=== PATIENT | female | born 1970 | race American Indian/Alaskan Native ===

== ENCOUNTER 2019-04-18 05:54 | Emergency (ER) | payer OTHER ==
[2019-04-18] MEDS ORDERED: METOCLOPRAMIDE 10 MG/2 ML INJ IV ONE (08:03)
[2019-04-18] MEDS ORDERED: diphenhydrAMINE 50 MG/ML VIAL IV ONE (08:03)
[2019-04-18] MEDS ORDERED: SODIUM CHLORIDE 0.9% 1000 ML 1,000 ML IV ONE (08:03)
[2019-04-18] MEDS ORDERED: dexAMETHasone 20 MG/5 ML VIAL IV ONE (08:03)
--- NOTE | 2019-04-18 09:17 | Emergency Department Report ---
ED Head Trauma HPI - General Chief complaint: Fall Stated complaint: FALL W/HEADACHE Time Seen by Provider: 04/18/19 07:48 Source: patient Mode of arrival: Ambulatory Limitations: No Limitations - History of Present Illness Initial comments: 49-year-old -Citizen Of The [place] female patient with history of migraines presents with complaints of headache and dizziness after a. head injury yesterday at work. Patient reports she hit her right forehead while trying to lift some boxes. She denies any loss of consciousness, vision changes, numbness/tingling/weakness in her limbs, difficulty with ambulation, or neck pain. She rates her headache as a 8/10 in severity and states is slightly improved with naproxen. She admits to 1 episode of vomiting and states she is currently nauseous, however states this headache does feel like her migraine and that nausea and vomiting is normal of her migraines. She reports she normally takes Imitrex for her migraines, however she was afraid to fall asleep. Complaint: head injury - Related Data Allergies/Adverse reactions: Allergies Allergy/AdvReac Type Severity Reaction Status Date / Time No Known Allergies Allergy Verified 04/18/19 06:00 ED Review of Systems ROS: Stated complaint: FALL W/HEADACHE Other details as noted in HPI Constitutional: denies: diaphoresis, fever Eyes: denies: vision change Respiratory: denies: shortness of breath Cardiovascular: denies: chest pain Gastrointestinal: nausea, vomiting. denies: abdominal pain Musculoskeletal: denies: back pain Skin: denies: lesions Neurological: headache, other. denies: weakness, numbness, paresthesias, abnormal gait Hematological/Lymphatic: denies: easy bleeding ED Past Medical Hx - Past Medical History Previous Medical History?: Yes Hx Headaches / Migraines: Yes Hx Asthma: Yes - Surgical History Past Surgical History?: Yes Additional Surgical History: tubal ligaion. IC - Social History Smoking Status: Never Smoker Substance Use Type: None ED Physical Exam - General Limitations: No Limitations General appearance: alert, in no apparent distress - Head Head exam: Present: atraumatic, normocephalic - Eye Eye exam: Present: normal appearance, PERRL, EOMI. Absent: scleral icterus - ENT ENT exam: Present: mucous membranes moist - Neck Neck exam: Present: normal inspection, full ROM. Absent: tenderness - Respiratory Respiratory exam: Present: normal lung sounds bilaterally. Absent: respiratory distress - Cardiovascular Cardiovascular Exam: Present: regular rate, normal rhythm. Absent: systolic murmur, diastolic murmur, rubs, gallop - GI/Abdominal GI/Abdominal exam: Present: soft. Absent: distended - Extremities Exam Extremities exam: Present: normal inspection, full ROM - Neurological Exam Neurological exam: Present: alert, oriented X3, CN II-XII intact, normal gait. Absent: motor sensory deficit - Expanded Neurological Exam Expanded Cerebellar function: Finger to Nose: Normal, Heel to Foley: Normal, Romberg: Normal Sensory exam: Upper Extremity Light Touch: Normal, Lower Extremity Light Touch: Normal Motor strength exam: RUE: 5, LUE: 5, RLE: 5, LLE: 5 - Psychiatric Psychiatric exam: Present: normal affect, normal mood - Skin Skin exam: Present: warm, dry, intact, normal color. Absent: rash, cyanosis, diaphoretic, erythema ED Course Vital Signs 04/18/19 04/18/19 05:59 08:59 Temperature 97.6 F Pulse Rate 80 Respiratory 18 18 Rate Blood Pressure 151/61 O2 Sat by Pulse 99 98 Oximetry - Lab Data Lab Results 04/18/19 Range/Units 09:29 Urine Color Straw (Yellow) Urine Turbidity Clear (Clear) Urine pH 7.0 (5.0-7.0) Ur Specific [place] 1.013 (1.003-1.030) Urine Protein <15 mg/dl (Negative) mg/dL Urine Glucose (UA) Neg (Negative) mg/dL Urine Ketones Neg (Negative) mg/dL Urine Blood Neg (Negative) Urine Nitrite Neg (Negative) Urine Bilirubin Neg (Negative) Urine Urobilinogen < 2.0 (<2.0) mg/dL Ur Leukocyte Esterase Neg (Negative) Urine WBC (Auto) 1.0 (0.0-6.0) /HPF Urine RBC (Auto) 2.0 (0.0-6.0) /HPF U Epithel Cells (Auto) 2.0 (0-13.0) /HPF Urine Mucus Few /HPF - Radiology Data Radiology results: report reviewed CT head without contrast Impression: Limited exam with moderate ring artifact. Having said that, no acute intracranial abnormality is detected. Please correlate with the patient's clinical presentation. If there is clinical concern, repeat CT head or MRI brain could be considered. - Medical Decision Making Patient here with complaints of headache and dizziness following head injury x yesterday. She denies any loss of consciousness. Neuro exam is normal. Vitals are normal. CT head results are as follows: Impression: Limited exam with moderate ring artifact. Having said that, no acute intracranial abnormality is detected. Please correlate with the patient's clinical presentation. If there is clinical concern, repeat CT head or MRI brain could be considered. Discussed artifact and CT head results with patient and possible need for repeat CT head, patient declines and states she would like to watch and wait over the next 24 to 48 hours. After Decadron, Reglan, and Benadryl IV with 1 L saline bolus patient states her headache is now a 1/10 in severity. Discussed diagnosis of concussion and importance of brain rest and follow-up with her neurologist, Dr. Cornelius within the next 48 hours. Patient instructed to call Dr. Cornelius's office today to inform them of her incident and symptoms to make an appointment. Also discussed in great detail signs and symptoms that should prompt immediate return to the emergency department, patient verbalizes understanding. Critical care attestation.: If time is entered above; I have spent that time in minutes in the direct care of this critically ill patient, excluding procedure time. ED Disposition Clinical Impression: Concussion Qualifiers: Encounter type: initial encounter Loss of consciousness presence/duration: without LOC Qualified Code(s): S06.0X0A - Concussion without loss of conscious ness, initial encounter Disposition: DC-01 TO HOME OR SELFCARE Is pt being admited?: No Condition: Stable Instructions: Concussion (ED) Additional Instructions: Please follow-up with your neurologist within 24 to 48 hours.
[2019-04-18 09:39] LABS: Bilirubin,Urine NEG (Negative); Blood,Urine NEG (Negative); Color,Urine Straw (Yellow); Mucus,Urine FEW /HPF; Protein,Urine <15 mg/dL mg/dL (Negative); Urobilinogen,Urine < 2.0 mg/dL (<2.0)
--- NOTE | 2019-04-18 10:22 | Cat Scan Report ---
CT HEAD WITHOUT CONTRAST INDICATION : head injury, dizziness. TECHNIQUE: Axial imaging performed from the skull apex through the skull base without the use of con trast. Sagittal and coronal reformatted images. All CT scans at this location are performed using C T dose reduction for ALARA by means of automated exposure control. COMPARISON: None FINDINGS: Comment: There appears to be moderate ring artifact throughout this examination which significantly l imits this exam. Parenchyma: No acute intracranial hemorrhage or parenchymal abnormality. Ventricles: Ventricles are normal in size and appear symmetric. Bones: No acute osseous abnormality. Sinuses: Sinuses and mastoid air cells are clear. Soft tissues: Soft tissues including the orbits appear normal. IMPRESSION: Limited exam with moderate ring artifact. Having said that, no acute intracranial abnorma lity is detected. Please correlate with the patient's clinical presentation. If there is clinical con cern, repeat CT head or MRI brain could be considered. Signer Name: Curtis Little Jr, MD Signed: 04/18/2019 10:17 AM Workstation Name: [id number]
[2019-04-18 11:16] VITALS: BP 141/82
== END 2019-04-18 11:15 | disposition home or self-care (01) ==
LOC: ED 05:54
DX: S06.0X0A Concussion without loss of consciousness, initial encounter (principal); J45.909 Unspecified asthma, uncomplicated; R42 Dizziness and giddiness; G43.909 Migraine, unspecified, not intractable, without status migrainosus; Z98.51 Tubal ligation status; W19.XXXA Unspecified fall, initial encounter; Y93.89 Activity, other specified; Y92.89 Other specified places as the place of occurrence of the external cause; Y99.8 Other external cause status
CPT/HCPCS: 70450; 81001; 96361; 96374; 96375; 99284; J1100; J1200; J2765; J7030

== ENCOUNTER 2019-04-24 11:37 | Emergency (ER) | payer OTHER ==
[2019-04-24 14:06] VITALS: BP 137/72
--- NOTE | 2019-04-24 14:07 | Event Note ---
ED Screening Note Date of service: 04/24/19 Time: 14:02 ED Screening Note: 49 y o female presents with headaches and arm numbness and tinggling s/p fall on 04/18 pt also exp nausea pmh of migraines Pt states motrin no relief vomitting episode 1 harvey lasts all day, This initial assessment/diagnostic orders/clinical plan/treatment(s) is/are subject to change based on patients health status, clinical progression and re- assessment by fellow clinical providers in the ED. Further treatment and workup at subsequent clinical providers discretion. Patient/guardian urged not to elope from the ED as their condition may be serious if not clinically assessed and managed. Initial orders include: CT at last visit acc eval
--- NOTE | 2019-04-24 18:18 | Cat Scan Report ---
CT BRAIN: 04/24/2019 INDICATION / CLINICAL INFORMATION: continued SKY after head trauma, right arm tingling. COMPARISON: 04/18/2019 FINDINGS: BRAIN/INTRACRANIAL STRUCTURES: Unenhanced CT images of the brain were obtained and compared to the pr evious exam from 6 days earlier. There has been no change. There is no evidence of acute abnormality. There is no evidence of acute ischemic injury, hemorrhage, or mass. There are no abnormal extra-axial fluid collections. EXTRACRANIAL STRUCTURES: Unremarkable. IMPRESSION: No acute abnormality. No change when compared to the recent prior exam. All CT scans at this location are performed using dose reduction to ALARA by means of automated expos ure control. Signer Name: Rafael Conway MD Signed: 04/24/2019 6:14 PM Workstation Name: [id number]
[2019-04-24] MEDS ORDERED: dexAMETHasone 20 MG/5 ML VIAL IM ONE (19:10)
[2019-04-24] MEDS ORDERED: diphenhydrAMINE 25 MG CAP PO ONE (19:10)
[2019-04-24] MEDS ORDERED: METOCLOPRAMIDE 10 MG TAB PO ONE (19:10)
[2019-04-24] MEDS ORDERED: ACETAMINOPHEN 500 MG TAB PO ONE (19:10)
--- NOTE | 2019-04-24 20:16 | Emergency Department Report ---
ED General Adult HPI - General Chief complaint: Fall Stated complaint: FALL AT WORK Time Seen by Provider: 04/24/19 18:23 Source: patient Mode of arrival: Ambulatory Limitations: No Limitations - History of Present Illness Initial comments: Ms. Bragg is a 49-year-old -[place] female who presents for headache pain 4/10 frontal intermittent for the last 2 weeks status post fall . She does have a history of migraines. She states more since fall. She she has secondary complaint of right arm pain described as numbness and tingling intermittent to the right fourth and fifth digit over the past 2 weeks as well. Patient had CT of head on day of incident however has not followed up with neuro or orthopedics. States she has been taking ibuprofen as needed for the headache and arm pain. It does work intermittently but pain returns. She denies dizziness, lightheadedness, no nausea vomiting, no chest pain or shortness of breath.. Symptoms are exacerbated by activity. Symptoms are relieved by rest. Onset/Timin -: week(s) Location: head, neck, upper extremity Radiation: extremity Severity scale (0 -10): 6 Quality: aching Consistency: intermittent Improves with: rest Worsens with: movement Associated Symptoms: headaches. denies: fever/chills, malaise, nausea/vomiting, weakness Treatments Prior to Arrival: none - Related Data Previous Rx's Medication Instructions Recorded Last Taken Type Acetaminophen [Non-Aspirin Extra 1,000 mg PO QID PRN #60 tablet 04/24/19 Unknown Rx Strength] Diclofenac 1% [Diclofenac 1% 40 applic TP QID PRN #1 tube 04/24/19 Unknown Rx topical gel] Metoclopramide [Reglan] 10 mg PO Q6H PRN #30 tab 04/24/19 Unknown Rx diphenhydrAMINE [Benadryl CAP] 25 mg PO Q6HR PRN #30 capsule 04/24/19 Unknown Rx predniSONE [Deltasone] 40 mg PO QDAY 5 Days #10 tab 04/24/19 Unknown Rx Allergies Allergy/AdvReac Type Severity Reaction Status Date / Time No Known Allergies Allergy Verified 04/18/19 06:00 ED Review of Systems ROS: Stated complaint: FALL AT WORK Other details as noted in HPI Constitutional: denies: chills, fever Eyes: denies: eye pain, eye discharge, vision change ENT: denies: ear pain, throat pain Respiratory: denies: cough, shortness of breath, wheezing Cardiovascular: as per HPI Endocrine: no symptoms reported Gastrointestinal: denies: abdominal pain, nausea, vomiting, diarrhea Genitourinary: denies: urgency, dysuria, discharge Musculoskeletal: arthralgia, myalgia Skin: denies: rash, lesions Neurological: headache, numbness. denies: weakness, paresthesias, confusion, vertigo Psychiatric: denies: anxiety, depression Hematological/Lymphatic: denies: easy bleeding, easy bruising ED Past Medical Hx - Past Medical History Previous Medical History?: No Hx Headaches / Migraines: Yes Hx Asthma: Yes Additional medical history: IC - Surgical History Past Surgical History?: Yes Additional Surgical History: tubal ligaion. IC - Social History Smoking Status: Never Smoker Substance Use Type: Alcohol - Medications Home Medications: Home Medications Medication Instructions Recorded Confirmed Last Taken Type Acetaminophen [Non-Aspirin Extra 1,000 mg PO QID PRN #60 tablet 04/24/19 Unknown Rx Strength] Diclofenac 1% [Diclofenac 1% 40 applic TP QID PRN #1 tube 04/24/19 Unknown Rx topical gel] Metoclopramide [Reglan] 10 mg PO Q6H PRN #30 tab 04/24/19 Unknown Rx diphenhydrAMINE [Benadryl CAP] 25 mg PO Q6HR PRN #30 capsule 04/24/19 Unknown Rx predniSONE [Deltasone] 40 mg PO QDAY 5 Days #10 tab 04/24/19 Unknown Rx ED Physical Exam - General Limitations: No Limitations General appearance: alert, in no apparent distress - Head Head exam: Present: atraumatic, normocephalic - Eye Eye exam: Present: normal appearance, PERRL, EOMI Pupils: Present: normal accommodation - ENT ENT exam: Present: mucous membranes moist - Neck Neck exam: Present: normal inspection, full ROM. Absent: tenderness, meningismus, lymphadenopathy, thyromegaly - Expanded Neck Exam Expanded Neck exam: Absent: tenderness, midline deformity, anterior neck swelling, thyroid mass, carotid bruit, tracheal deviation - Respiratory Respiratory exam: Present: normal lung sounds bilaterally. Absent: respiratory distress, wheezes, stridor, chest wall tenderness - Cardiovascular Cardiovascular Exam: Present: regular rate, normal rhythm, normal heart sounds. Absent: systolic murmur, diastolic murmur, rubs, gallop - GI/Abdominal GI/Abdominal exam: Present: soft, normal bowel sounds. Absent: tenderness, guarding, rebound, rigid, bruit, hernia - Rectal Rectal exam: Present: deferred - Extremities Exam Extremities exam: Present: normal inspection, full ROM, normal capillary refill. Absent: tenderness - Expanded Upper Extremity Exam Right General: Present: normal inspection Shoulder Exam: Present: full ROM, tenderness. Absent: swelling Upper Arm exam: Present: full ROM. Absent: tenderness, swelling Elbow exam: Present: full ROM, tenderness. Absent: swelling Forearm Wrist exam: Present: full ROM, tenderness. Absent: swelling Hand Wrist exam: Present: normal inspection, full ROM. Absent: tenderness, swelling Neuro motor exam: Present: wrist extension intact, thumb opposition intact, thumb IP flexion intact, thumb adduction intact, fingers 2-5 abduction intact Neurosensory exam: Present: radial nerve intact, ulnar nerve intact Vascular: Present: radial pulse - Back Exam Back exam: Present: normal inspection, full ROM. Absent: CVA tenderness (R), CVA tenderness (L), muscle spasm, paraspinal tenderness, vertebral tenderness, rash noted - Neurological Exam Neurological exam: Present: alert, oriented X3, CN II-XII intact, normal gait, reflexes normal - Expanded Neurological Exam Expanded Patient oriented to: Present: person, place, time Speech: Present: fluid speech Sensory exam: Upper Extremity Light Touch: Normal, Upper Extremity Pin Prick: Normal, Upper Extremity Temperature: Normal, UE 2 Point Discrimination: Normal Motor strength exam: RUE: 5, LUE: 5, RLE: 5, LLE: 5 DTR: bicep (R): 2+, bicep (L): 2+, tricep (R): 2+, tricep (L): 2+ Best Eye Response ([place]): (4) open spontaneously Best Motor Response ([place]): (6) obeys commands Best Verbal Response ([place]): (5) oriented Kayleigh Total: 15 - Psychiatric Psychiatric exam: Present: normal affect, normal mood - Skin Skin exam: Present: warm, dry, intact, normal color. 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 COMPARISON: 04/18/2019 FINDINGS: BRAIN/INTRACRANIAL STRUCTURES: Unenhanced CT images of the brain were obtained and compared to the previous exam from 6 days earlier. There has been no change. There is no evidence of acute abnormality. There is no evidence of acute ischemic injury, hemorrhage, or mass. There are no abnormal extra-axial fluid collections. EXTRACRANIAL STRUCTURES: Unremarkable. IMPRESSION: No acute abnormality. No change when compared to the recent prior exam. All CT scans at this location are performed using dose reduction to ALARA by means of automated exposure control. 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 Critical care attestation.: If time is entered above; I have spent that time in minutes in the direct care of this critically ill patient, excluding procedure time. ED Disposition Clinical Impression: Radiculopathy affecting upper extremity Headache Qualifiers: Headache type: unspecified Headache chronicity pattern: acute headache Intractability: not intractable Qualified Code(s): R51 - Headache Disposition: - TO HOME OR SELFCARE Is pt being admited?: No Does the pt Need Aspirin: No Condition: Stable Instructions: Acute Headache (ED), Peripheral Neuropathy (ED) Prescriptions: diphenhydrAMINE [Benadryl CAP] 25 mg PO Q6HR PRN #30 capsule PRN Reason: Headache predniSONE [Deltasone] 40 mg PO QDAY 5 Days #10 tab Diclofenac 1% [Diclofenac 1% topical gel] 40 applic TP QID PRN #1 tube PRN Reason: pain Acetaminophen [Non-Aspirin Extra Strength] 1,000 mg PO QID PRN #60 tablet PRN Reason: pain Metoclopramide [Reglan] 10 mg PO Q6H PRN #30 tab PRN Reason: Headache Referrals: ARVIN GOSS MD [Staff Physician] - 3-5 Days MICHAEL MANRIQUE MD [Referring] - 3-5 Days Forms: Work/School Release Form(ED) Time of Disposition: 20:40
== END 2019-04-24 20:45 | disposition home or self-care (01) ==
LOC: ED 11:37
DX: M54.10 Radiculopathy, site unspecified (principal); G43.909 Migraine, unspecified, not intractable, without status migrainosus; J45.909 Unspecified asthma, uncomplicated; N30.10 Interstitial cystitis (chronic) without hematuria; Z98.890 Other specified postprocedural states; Z98.51 Tubal ligation status; Z79.899 Other long term (current) drug therapy
CPT/HCPCS: 70450; 96372; 99283; J1100

== ENCOUNTER 2019-12-27 12:01 | Emergency (ER) | payer OTHER ==
--- NOTE | 2019-12-27 18:26 | Emergency Department Report ---
ED Psych HPI - General Chief Complaint: Psych Time Seen by Provider: 12/27/19 18:24 Source: patient Mode of arrival: Ambulatory - History of Present Illness Initial Comments: 49-year-old -[place] female with history of depression, went to see PCP today, discussed with them that she was suicidal for the past month, he put her on 1013 and referred her to the ED. Upon arrival to the ED patient states he had no plan to hurt herself, has a lot to live for, had just briefly had that thought, but feels better now. - Related Data Home Medications Medication Instructions Recorded Confirmed Last Taken Acetaminophen with Codeine 1 each PO Q6HR PRN 12/27/19 12/27/19 Unknown [Acetaminophen-Codeine #2 TAB] Erenumab-Aooe [Aimovig 70 mg IM QMONTH 12/27/19 12/27/19 Unknown Autoinjector] Fluticasone/Vilanterol [Breo 100 mcg IN DAILY 12/27/19 12/27/19 Unknown Ellipta 100-25 Mcg INH] Trazodone HCl 100 mg PO DAILY 12/27/19 12/27/19 Unknown Previous Rx's Medication Instructions Recorded Last Taken Type Diclofenac 1% [Diclofenac 1% 40 applic TP QID PRN #1 tube 04/24/19 Unknown Rx topical gel] Metoclopramide [Reglan] 10 mg PO Q6H PRN #30 tab 04/24/19 Unknown Rx Allergies Allergy/AdvReac Type Severity Reaction Status Date / Time No Known Allergies Allergy Verified 04/18/19 06:00 ED Review of Systems ROS: Stated complaint: Other details as noted in HPI Constitutional: denies: chills, fever Eyes: denies: eye pain, eye discharge, vision change ENT: denies: ear pain, throat pain Respiratory: denies: cough, shortness of breath, wheezing Cardiovascular: denies: chest pain, palpitations Endocrine: no symptoms reported Gastrointestinal: denies: abdominal pain, nausea, diarrhea Genitourinary: denies: urgency, dysuria, discharge Musculoskeletal: denies: back pain, joint swelling, arthralgia Skin: denies: rash, lesions Neurological: denies: headache, weakness, paresthesias Psychiatric: anxiety, depression Hematological/Lymphatic: denies: easy bleeding, easy bruising ED Past Medical Hx - Past Medical History Previous Medical History?: Yes Hx Headaches / Migraines: Yes Hx Psychiatric Treatment: (Depression) Hx Asthma: Yes Additional medical history: IC, Depression, Anxiety - Surgical History Additional Surgical History: tubal ligaion. IC - Social History Smoking Status: Never Smoker Substance Use Type: Alcohol - Medications Home Medications: Home Medications Medication Instructions Recorded Confirmed Last Taken Type Diclofenac 1% [Diclofenac 1% 40 applic TP QID PRN #1 tube 04/24/19 12/27/19 Unknown Rx topical gel] Metoclopramide [Reglan] 10 mg PO Q6H PRN #30 tab 04/24/19 12/27/19 Unknown Rx Acetaminophen with Codeine 1 each PO Q6HR PRN 12/27/19 12/27/19 Unknown History [Acetaminophen-Codeine #2 TAB] Erenumab-Aooe [Aimovig 70 mg IM QMONTH 12/27/19 12/27/19 Unknown History Autoinjector] Fluticasone/Vilanterol [Breo 100 mcg IN DAILY 12/27/19 12/27/19 Unknown History Ellipta 100-25 Mcg INH] Trazodone HCl 100 mg PO DAILY 12/27/19 12/27/19 Unknown History ED Physical Exam - General Limitations: No Limitations General appearance: alert, in no apparent distress - Head Head exam: Present: atraumatic, normocephalic - Eye Eye exam: Present: normal appearance - ENT ENT exam: Present: mucous membranes moist - Neck Neck exam: Present: normal inspection - Respiratory Respiratory exam: Present: normal lung sounds bilaterally. Absent: respiratory distress - Cardiovascular Cardiovascular Exam: Present: regular rate, normal rhythm. Absent: systolic murmur, diastolic murmur, rubs, gallop - GI/Abdominal GI/Abdominal exam: Present: soft, normal bowel sounds - Extremities Exam Extremities exam: Present: normal inspection - Back Exam Back exam: Present: normal inspection - Neurological Exam Neurological exam: Present: alert, oriented X3 - Psychiatric Psychiatric exam: Present: normal affect, normal mood - Skin Skin exam: Present: warm, dry, intact, normal color. Absent: rash ED Course Vital Signs 12/27/19 12/27/19 12/27/19 12:17 18:00 19:30 Temperature 98.2 F Pulse Rate 69 Respiratory 16 18 18 Rate Blood Pressure 146/74 [Left] O2 Sat by Pulse 97 99 Oximetry 12/27/19 20:08 Temperature 98.6 F Pulse Rate 75 Respiratory 18 Rate Blood Pressure 143/77 [Left] O2 Sat by Pulse 99 Oximetry ED Medical Decision Making - Lab Data Result diagrams: 12/27/19 12:46 12/27/19 12:46 - Medical Decision Making Not suicidal, evaluated by behavioral health, who presented 1013, and patient was deemed safe to go home. Would follow-up outpatient with psych. - Differential Diagnosis Psychosis, depression, bipolar. Critical care attestation.: If time is entered above; I have spent that time in minutes in the direct care of this critically ill patient, excluding procedure time. ED Disposition Clinical Impression: Depression Qualifiers: Depression Type: major depressive disorder Major depression recurrence: recurrent Active/Remission status: currently active Major depression episode severity: moderate Qualified Code(s): F33.1 - Major depressive disorder, recurrent, moderate Disposition: DC-01 TO HOME OR SELFCARE Is pt being admited?: No Does the pt Need Aspirin: No Condition: Stable Instructions: Depression (ED) Referrals: PRIMARY CARE, [Primary Care Provider] - 3-5 Days
[2019-12-27 19:05] LABS: BUN/Creatinine Ratio 19; Blood Urea Nitrogen 13 mg/dL (7-17); Calcium 9.6 mg/dL (8.4-10.2)
[2019-12-27 19:06] LABS: Amphetamine Screen,Urine PRESUMPTIVE NEGATIVE; Benzodiazepines Screen,Urine PRESUMPTIVE NEGATIVE; Cannabinoid Screen,Urine PRESUMPTIVE POSITIVE; Methadone Screen,Urine PRESUMPTIVE NEGATIVE; Opiate Screen,Urine PRESUMPTIVE NEGATIVE
[2019-12-27 19:07] LABS: Cocaine Screen,Urine PRESUMPTIVE NEGATIVE
[2019-12-27 19:23] LABS: Basophils % (Auto) 0.8 % (0.0-1.8); Eosinophils # (Auto) 0.6 K/mm3 (0.0-0.4); Eosinophils % (Auto) 10.3 % (0.0-4.3); Hematocrit 36.9 % (30.3-42.9); Hemoglobin 12.4 gm/dl (10.1-14.3); Lymphocytes # (Auto) 1.5 K/mm3 (1.2-5.4); Lymphocytes % (Auto) 25.2 % (13.4-35.0); Mean Corpuscular HGB Conc 33 % (30-34); Mean Corpuscular Volume 92 fl (79-97); Monocytes # (Auto) 0.5 K/mm3 (0.0-0.8); Monocytes % (Auto) 7.6 % (0.0-7.3); Platelet Count 291 K/mm3 (140-440); Red Cell Distribution Width 15.4 % (13.2-15.2)
[2019-12-27 19:35] LABS: Bilirubin,Urine NEG (Negative); Blood,Urine NEG (Negative); Color,Urine Yellow (Yellow); Mucus,Urine FEW /HPF; Protein,Urine <15 mg/dL mg/dL (Negative); RBC,Urine < 1.0 /HPF (0.0-6.0); Urobilinogen,Urine < 2.0 mg/dL (<2.0)
[2019-12-27 20:09] VITALS: BP 143/77
== END 2019-12-27 22:00 | disposition home or self-care (01) ==
LOC: ED 17:30
DX: F32.9 Major depressive disorder, single episode, unspecified (principal); G43.909 Migraine, unspecified, not intractable, without status migrainosus; F41.9 Anxiety disorder, unspecified; J45.909 Unspecified asthma, uncomplicated; Z79.899 Other long term (current) drug therapy
CPT/HCPCS: 36415; 80048; 80198; 80307; 80320; 81001; 81025; 85025; G0480

== ENCOUNTER 2020-04-01 12:28 | Outpatient (CLI) | payer OTHER | END 2020-04-01 12:29 | disposition home or self-care (01) | LOC: LAB 12:28 | PROVIDERS: ATTEND Specialist | DX: G62.9 Polyneuropathy, unspecified (principal) | CPT/HCPCS: 36415; 82607; 83036; 83921; 84443; 86592; 86593; 86780 ==